=== PATIENT | female | born 1965 | race Caucasian/White ===

== ENCOUNTER 2017-09-21 13:45 | Outpatient (CLI) | payer BC | END 2017-09-21 14:00 | disposition home or self-care (01) | LOC: RT.N 13:45 | PROVIDERS: ATTEND Nurse Practitioner Gerontology | DX: R07.89 Other chest pain (principal) | CPT/HCPCS: 93005 ==

== ENCOUNTER 2017-10-27 11:47 | Outpatient (CLI) | payer BC ==
--- NOTE | 2017-10-28 14:26 | Mammography Report ---
DIGITAL SCREENING MAMMOGRAM: 10/27/2017 CLINICAL INDICATION: A 52-year-old with history of late childbearing for screening. COMPARISON: 06/2011, 05/2008. TECHNIQUE: Routine CC and MLO projections were obtained of the breasts. FINDINGS: The breasts demonstrate heterogeneously dense fibroglandular parenchyma bilaterally. Coarse and punctate, typically benign calcifications are present. No suspicious masses, clustered microcalcifications, or regions of architectural distortion are identified. IMPRESSION: BENIGN FINDINGS. RECOMMENDATION: Routine annual screening unless otherwise clinically indicated. BIRADS CATEGORY 2 - benign findings. STANDARD QUALIFYING STATEMENTS: 1. This examination was reviewed with the aid of Computer-Aided Detection (CAD). 2. A negative or benign imaging report should not delay biopsy if clinically suspicious findings are present. Consider surgical consultation if warranted. More than 5% of cancers are not identified by imaging. 3. Dense breasts may obscure an underlying neoplasm. TD: 10/28/2017 14:25
== END 2017-10-27 11:48 | disposition home or self-care (01) ==
LOC: DI.N 11:47
PROVIDERS: ATTEND Nurse Practitioner Gerontology
DX: Z12.39 Encounter for other screening for malignant neoplasm of breast (principal)
CPT/HCPCS: 77067

== ENCOUNTER 2019-04-28 08:00 | Outpatient (CLI) | payer BC | END 2019-04-28 23:59 | disposition home or self-care (01) | LOC: LAB.N 08:00 | PROVIDERS: ATTEND Nurse Practitioner Gerontology | DX: E03.9 Hypothyroidism, unspecified (principal) | CPT/HCPCS: 36415; 84443 ==

== ENCOUNTER 2019-05-17 14:00 | Outpatient (CLI) | payer BC | END 2019-05-17 23:59 | disposition home or self-care (01) | LOC: LAB.R 14:00 | PROVIDERS: ATTEND Family Medicine | DX: R30.0 Dysuria (principal) | CPT/HCPCS: 87077; 87086 ==

== ENCOUNTER 2020-09-11 15:04 | Outpatient (CLI) | payer BC, OTHER ==
--- NOTE | 2020-09-12 11:25 | Mammography Report ---
BILATERAL DIGITAL SCREENING MAMMOGRAM 3D/2D: 09/11/2020 CLINICAL: Routine screening. Comparison is made to exams dated: 10/27/2017 mammogram and 07/07/2011 mammogram - [facility]. There are scattered fibroglandular elements in both breasts. There is a new 0.5 cm focal asymmetry in the right breast at 3 o'clock posterior depth. No other significant masses, calcifications, or other findings are seen in either breast. IMPRESSION: INCOMPLETE: NEEDS ADDITIONAL IMAGING EVALUATION The new 0.5 cm focal asymmetry in the right breast is indeterminate. Additional views with possible ultrasound are recommended. This exam was interpreted at Station ID: [id number]. NOTE: For mammograms, a report in lay terms will be sent to the patient. Approximately 15% of breast malignancies will not be visualized mammographically. In the management of a palpable breast mass, a negative mammogram must not discourage biopsy of a clinically suspicious lesion. Electronically Signed By: Zia Rizvi M.D. aty/:09/11/2020 17:15:45 ACR BI-RADS Category 0: Incomplete 3340F PARENCHYMAL PATTERN: (A) - The breast(s) demonstrate(s) scattered fibroglandular densities. BI-RADS CATEGORY: (0) - 0 Mammo and US [id number] Immediate follow-up LATERALITY: (R)
== END 2020-09-11 15:05 | disposition home or self-care (01) ==
LOC: DI.N 15:04
PROVIDERS: ATTEND Naturopath
DX: Z12.31 Encounter for screening mammogram for malignant neoplasm of breast (principal); R92.8 Other abnormal and inconclusive findings on diagnostic imaging of breast

== ENCOUNTER 2020-10-02 07:11 | Day surgery (SDC) | payer OTHER ==
[2020-10-02] MEDS ORDERED: LACTATED RINGERS 1,000 ML IV ONE ×2 (07:12→09:20)
[2020-10-02] MEDS ORDERED: fentaNYL 250 MCG/5 ML VIAL ONE (08:50)
[2020-10-02] MEDS ORDERED: MIDAZOLAM 2 MG/2 ML VIAL ONE ×4 (08:50→09:41)
[2020-10-02 09:46] VITALS: BP 105/90
== END 2020-10-02 07:12 | disposition home or self-care (01) ==
LOC: SDS 07:11
PROVIDERS: ATTEND Surgery
DX: Z12.11 Encounter for screening for malignant neoplasm of colon (principal); E66.9 Obesity, unspecified; E03.9 Hypothyroidism, unspecified; Z79.899 Other long term (current) drug therapy; Z68.37 Body mass index [BMI] 37.0-37.9, adult
CPT/HCPCS: 45378; J3010; J7120

== ENCOUNTER 2020-10-04 11:04 | Outpatient (CLI) | payer OTHER ==
--- NOTE | 2020-10-07 12:54 | Ultrasound Report ---
LIMITED ULTRASOUND OF RIGHT BREAST: 10/04/2020 CLINICAL: Patient returns for additional imaging over a suspected mass in the right breast. Comparison is made to exams dated: 10/04/2020 mammogram, 09/11/2020 mammogram, and 10/27/2017 mammogram - [facility]. Color flow and real-time ultrasound of the right breast 3 o'clock region were performed. Clifford scale images of the real-time examination were reviewed. There is a 0.4 cm x 0.3 cm x 0.3 cm oval cyst with an irregular internal wall in the right breast at 3 o'clock posterior depth 4 cm from the nipple. This oval cyst is anechoic. This likely correlates with mammography findings. Color flow imaging demonstrates that there is no vascularity present. IMPRESSION: PROBABLY BENIGN The 0.4 cm oval cyst in the right breast is consistent with a complicated cyst and is probably benign . A follow-up mammogram and possible ultrasound in 6 months is recommended to demonstrate stability. Exam findings were conveyed to the patient. This exam was interpreted at Station ID: [id number]. Electronically Signed By: Ishan Barnes M.D. slc/:10/04/2020 13:02:10 Ultrasound BI-RADS: 3 Probably benign BI-RADS CATEGORY: (3) - 3 Mammo and US [id number] 6 month follow-up LATERALITY: (B)
--- NOTE | 2020-10-07 12:54 | Mammography Report ---
UNILATERAL RIGHT DIGITAL DIAGNOSTIC MAMMOGRAM 3D/2D: 10/04/2020 CLINICAL: Patient returns today to evaluate a focal asymmetry in the right breast. Comparison is made to exams dated: 09/11/2020 mammogram, 10/27/2017 mammogram - [facility]. There are scattered fibroglandular elements in right breast. There is a 0.5 cm focal asymmetry in the right breast at 3 o'clock posterior depth. No other significant masses or calcifications are seen in the breast. IMPRESSION: INCOMPLETE: NEEDS ADDITIONAL IMAGING EVALUATION The 0.5 cm focal asymmetry in the right breast is indeterminate. A targeted ultrasound is recommended and will immediately follow. This exam was interpreted at Station ID: [id number]. NOTE: For mammograms, a report in lay terms will be sent to the patient. Approximately 15% of breast malignancies will not be visualized mammographically. In the management of a palpable breast mass, a negative mammogram must not discourage biopsy of a clinically suspicious lesion. Electronically Signed By: Ishan Barnes M.D. slc/:10/04/2020 13:03:30 ACR BI-RADS Category 0: Incomplete 3340F PARENCHYMAL PATTERN: (A) - The breast(s) demonstrate(s) scattered fibroglandular densities. BI-RADS CATEGORY: (0) - 0 Ultrasound [id number] Immediate follow-up LATERALITY: (B)
== END 2020-10-04 11:05 | disposition home or self-care (01) ==
LOC: DI 11:04
PROVIDERS: ATTEND Naturopath
DX: N60.01 Solitary cyst of right breast (principal)

== ENCOUNTER 2020-11-12 14:10 | Outpatient (CLI) | payer OTHER ==
--- NOTE | 2020-11-12 14:34 | XRAY Report ---
PROCEDURE: Lumbar Spine 2 View INDICATIONS: LUMBAGO WITH SCIATICA, LEFT SIDE TECHNIQUE: 2 views of the lumbar spine were acquired. COMPARISON: None. FINDINGS: No fracture. Levoscoliosis is present. No definite disc space narrowing. Scattered multilevel endplat e spurring and diffuse facet arthropathy. Soft tissues: Overlying bowel gas pattern is normal. No suspicious soft tissue calcifications. IMPRESSION: Mild spondylitic changes and facet arthropathy. Levocurvature. Reviewed by: Bryan Stanley MD on 11/12/2020 2:33 PM PDT Approved by: Bryan Stanley MD on 11/12/2020 2:33 PM PDT Station ID: [id number]
== END 2020-11-12 14:11 | disposition home or self-care (01) ==
LOC: DI 14:10
PROVIDERS: ATTEND Acupuncturist
DX: M47.816 Spondylosis without myelopathy or radiculopathy, lumbar region (principal)

== ENCOUNTER 2021-07-02 19:51 | Outpatient (CLI) | payer OTHER ==
--- NOTE | 2021-07-03 10:37 | XRAY Report ---
PROCEDURE: Knee 3 View LT INDICATIONS: LEFT KNEE PAIN TECHNIQUE: 3 views of the left knee were acquired. COMPARISON: None. FINDINGS: Bones: No fractures or dislocations. No suspicious bony lesions. Soft tissues: There is a small joint effusion. No suspicious soft tissue calcifications. IMPRESSION: 1. No fracture or dislocation. 2. Small joint effusion. Reviewed by: Cesar Jones MD on 07/03/2021 10:35 AM [facility] Approved by: Cesar Jones MD on 07/03/2021 10:35 AM [facility] Station ID: [id number]
== END 2021-07-02 19:52 | disposition home or self-care (01) ==
LOC: DI 19:51
PROVIDERS: ATTEND Acupuncturist
DX: M25.562 Pain in left knee (principal); M25.462 Effusion, left knee

== ENCOUNTER 2021-07-10 16:46 | Outpatient (CLI) | payer OTHER ==
--- NOTE | 2021-07-11 13:46 | Ultrasound Report ---
PROCEDURE: Duplex Ext Veins Left INDICATIONS: LEFT KNEE PAIN TECHNIQUE: Real-time imaging, as well as color and pulse Doppler interrogation, were performed of the lower extr emity deep veins from the inguinal ligament to the popliteal fossa. COMPARISON: None. FINDINGS: The deep veins are normally compressible, and free of intraluminal thrombus. Color and pu lse Doppler demonstrate normal phasic intraluminal flow. There is normal augmentation response to di stal compression maneuver. No visualized Yin's cyst. IMPRESSION: No deep venous thrombosis. Reviewed by: Coreen Lozano MD on 07/11/2021 1:44 PM PST Approved by: Coreen Lozano MD on 07/11/2021 1:44 PM PST Station ID: [id number]
== END 2021-07-10 16:47 | disposition home or self-care (01) ==
LOC: DI 16:46
PROVIDERS: ATTEND Acupuncturist
DX: M25.562 Pain in left knee (principal)

== ENCOUNTER 2021-11-05 15:54 | Outpatient (CLI) | payer OTHER ==
[2021-11-05 16:55] VITALS: BP 148/96
--- NOTE | 2021-11-05 16:55 | SLEEP CARE CONSULTATION ---
Information from patient questionnaire entered by Bobby Moreira MA. I have reviewed and concur with the information entered by Bobby Moreira MA. This document represents the service I personally performed and the decisions made by , Beth Reis ARNP. History of Present Illness Service Date and Time: 11/05/2021 1554 Reason for Visit: New patient Chief Complaint: reports: Insomnia, Unrefreshed sleep, Excessive daytime sleepiness, Frequent awakenings at night Date of Onset: SEVERAL YEARS Usual bedtime: 8-10 PM Time it takes to fall asleep: 1-3 HOURS Snores at night: No (don't know, never told) Observed to quit breathing while asleep: No Number of times waking at night: 2-3 Reasons for waking at night: reports: Pain, Bathroom, Other (unknown reasons). denies: Choking, Snoring, Gasping for air Toss, Turn, or Twitch while sleeping: Yes Recalls having dreams: No Usually gets out of bed at: [id number] Feels refreshed in the morning: No Morning headache: Yes (sometimes; 3-4 times a month; resolve after shower or not at all; hx migrai) Sleepy or fatigued during the day: Yes Ever fallen asleep while driving: No Takes day naps: Yes (sometimes; 1 x a month) Dreams during day naps: No Prior sleep studies: No Additional HPI information: I had the pleasure of seeing LEIDA LEAL today regarding the possibility of her having a sleep disorder. Her current complaints are excessive daytime sleepiness, frequent night awakenings, insomnia and unrefreshed sleep. She saw a medical assistant supervisor who was working with her for her anxiety. She was seeking possible medication for her anxiety and was given some diazepam and methylphenidate extended release. She sleeps alone and no one has told her she snores. She used to have bruxism a long time ago. She has never woke herself up gasping, choking or snoring. She states she lays down and cannot fall asleep for 1-3 hours. She has ruminating thoughts that keep her from falling asleep and will keep her from falling back to sleep if she wakes up during the night. The new medication for her anxiety seems to be helping some with calming her mind. She usually does not feel rested in the mornings. It takes her a while to get up in the morning. - Parasomnia Symptoms Ever been unable to move upon waking from sleep: No Walks in sleep: Yes (used to; don't think so now) Talks in sleep: No (unknown) Ever acted out dreams in sleep: No (unknown) Ever felt weak in the knees when startled or emotional: Yes (has not fallen to ground) Bothered by creepy, crawly, restless sensations in legs: Yes (sometimes; notice it throughout the day) Problems with memory or concentration: Yes (both) Subjective Initial [place] Sleepiness Scale score: 11 (10/2021) Past Medical History Past Medical History: reports: Hypothyroidism, Anxiety, Depression, Other (THYROID, INFLAMMATION OF THE KNEE) Social History The patient's occupation is a [employer]. Patient is Single and lives in . Have you smoked in the past 12 months: No Alcohol use: Yes Alcohol amount and frequency: 1-3 X YEARLY Caffeine use: Yes Caffeine amount and frequency: 1-3 X DAILY Family History Family history of sleep disordered breathing: Yes Family Hx Sleep Apnea: Mother: Sleep apnea - Treated, Sibling: Sleep apnea - Treated Allergies and Home Medications Known drug allergies: No Drug allergies reviewed: Yes (NKDA) Home medication list reviewed: Yes Allergy and home medication list: Allergies No Known Drug Allergies Allergy (Verified 10/02/20 07:35) Medications: diazepam Levothyroxine Methylphenidate Vitamin C, D, B12 Turmeric Magnesium Review of Systems Weight gain over past 5 years: 20+ Cardiovascular: reports: leg or foot swelling Urinary: reports: frequency Neurological: reports: headaches Psychiatric: reports: Attention Deficit Hyperactivity, anxiety, depression Ear/Nose/Throat: reports: nasal congestion, sinus problems, nose bleeds, wisdom teeth removed. denies: tonsillectomy Endocrine: reports: thyroid disease, sluggishness Immunologic: reports: sneezing, allergies to food or environment (seasonal allergies) Physical Exam Vital signs obtained and entered by: SHAYNA BELLAMY Blood Pressure: 148/96 (LEFT, PULSE 101, RESP 16, ) Cuff size: wrist Heart Rate: 105 O2 Saturation: 98 (PAPER MASK) Height: 5 ft 6 in Weight: 230 lb Body Mass Index: 37.1 BMI Classification: Obese Neck circumference: 14 (INCHES) Mouth and throat: narrow oropharynx Soft palate: long Hard palate: normal Uvula: normal Uvula visualization: 50% Mallampati Class II Tongue: enlarged in size with teeth cali on lateral edges Tonsils: 1+ Neck: normal w/o lymphadenopathy or thyromegaly Heart: regular rate and rhythm Lungs: clear bilaterally Impression and Plan 1. Suspected Obstructive Sleep Apnea-Hypopnea Syndrome, as suggested by a history of morning headache, frequent awakening during the night, unrefreshed s leep, cognitive impairment, and excessive daytime sleepiness. Narrow oropharynx and obesity are common predisposing factors for obstructive sleep apnea-hypopnea syndrome. I recommend proceeding to polysomnography to confirm the diagnosis and to assess severity. If the patient has significant sleep disordered breathing, a manual CPAP titration study will also be performed to find the optimal treatment pressure. I informed the patient of what the sleep studies involve and after some discussion, obtained agreement to proceed. The pathophysiology of obstructive sleep apnea-hypopnea syndrome was discussed with the patient and health risks of cardiovascular and cerebrovascular disease if not treated. Risks of drowsy driving discussed in detail and patient advised to avoid long distance driving and to brisket puller at the first sign of drowsiness. Patient agreed to plan. * Schedule polysomnography +- manual CPAP titration study and return in 1-2 weeks after the study to discuss results. * Avoid long distance driving or driving when feeling sleepy. * Avoid alcohol, sedative and muscle relaxant around bedtime. * Attempt to lose weight. * Review instructions provided by trained office staff on how to prepare for the sleep study. * Return for follow-up after sleep study completed. Counseling Topics: Weight loss health impact Visit Type: In Office Time Spent with Patient (minutes): 30 Provider Statement: I spent 100% of the Face to Face Visit with the patient with greater than 50% spent counseling the patient and coordination of care.
== END 2021-11-05 15:55 | disposition home or self-care (01) ==
LOC: SC 15:54
PROVIDERS: ATTEND Nurse Practitioner Family
DX: G47.10 Hypersomnia, unspecified (principal); R53.83 Other fatigue; G47.8 Other sleep disorders; G47.00 Insomnia, unspecified; R51.9 Headache, unspecified; F32.A Depression, unspecified; E66.9 Obesity, unspecified; Z68.37 Body mass index [BMI] 37.0-37.9, adult
CPT/HCPCS: 99203; 99212

== ENCOUNTER 2021-11-11 08:31 | Outpatient (CLI) | payer OTHER | END 2021-11-11 08:32 | disposition home or self-care (01) | LOC: SC 08:31 | PROVIDERS: ATTEND Nurse Practitioner Family | DX: G47.33 Obstructive sleep apnea (adult) (pediatric) (principal); R09.02 Hypoxemia | CPT/HCPCS: 95806 ==

== ENCOUNTER 2021-12-05 15:24 | Outpatient (CLI) | payer OTHER ==
--- NOTE | 2021-12-05 15:55 | SLEEP CARE CONSULTATION ---
Information from patient questionnaire entered by Bobby Moreira MA. I have reviewed and concur with the information entered by Bobby Moreira MA. This document represents the service I personally performed and the decisions made by , Beth Reis ARNP. History of Present Illness Service Date and Time: 12/05/2021 1524 Initial [place] Sleepiness Scale score: 11 (10/2021) Current [place] Sleepiness Scale score: 7 (11/2021) Additional HPI information: LEIDA LEAL returns for follow up and results of the recently performed home sleep study. I explained the pathophysiology behind obstructive sleep apnea. We then spent quite a bit of time discussing different treatment options. For mild obstructive sleep apnea, surgery and oral appliance are alternatives to nasal CPAP therapy but in moderate or severe cases, nasal CPAP is the most effective and reliable treatment. Because apnea is primarily in supine position, then positional management therapy could be effective. Methods discussed such as positioning with pillows to prevent supine sleep. I reviewed the impact of weight changes on sleep apnea and strongly recommended losing weight. [facility] patient education PAP tips and Non Pap treatment pamphlets reviewed and given to patient. Patient was cautioned about risks of drowsy driving until sleepiness symptoms resolve. Sleep Study - Results Type of Sleep Study: Home sleep study (F/U HOME STUDY, 11/11/21 [facility],) Prior sleep studies: No Polysomnography/Home Sleep Study results: Physician Impression: The quality of the study is good. The length of the study is adequate (> 240 minutes). Please also see the tabulated and graphic data. 1. Obstructive Sleep Apnea-Hypopnea (ICD-10 G47.33), moderate, with an AHI of 17.0/hr and luis SaO2 of 77%. During the study, the patient had 87 apneas (85 obstructive, 1 central, 1 mixed) and 66 hypopneas. The longest episode lasted 104.0 seconds. The respiratory events occurred more frequently during supine sleep (supine AHI was 19.4 and non-supine, 15.08). 2. Hypoxemia (ICD-10 R09.02), moderate, with the lowest oxygen saturation of 77 % and 11.7 minutes with SaO2 under 90%. Baseline oxygen saturation was normal (Average oxygen saturation was 93%). Allergies and Home Medications Known drug allergies: No Drug allergies reviewed: Yes Home medication list reviewed: Yes (no changes) Allergy and home medication list: Allergies No Known Drug Allergies Allergy (Verified 10/02/20 07:35) Review of Systems Review of systems same as previous: Yes (no changes) Physical Exam Vital signs obtained and entered by: SHAYNA BELLAMY Blood Pressure: 135/85 (LEFT, PULSE 92, RESP 18) Heart Rate: 90 O2 Saturation: 98 (PAPER MASK) Height: 5 ft 6 in Weight: 225 lb Body Mass Index: 36.3 BMI Classification: Obese Impression and Plan 1. Obstructive Sleep Apnea-Hypopnea Syndrome, moderate, with lowest oxygen saturation of 77%. Obviously this is the cause of the patients symptoms of unrefreshed sleep, and excessive daytime sleepiness. Positive pressure therapy could benefit anxiety and depression. The patient chose an oral appliance to treat their apnea. A 3 month follow up will be made to see if appliance has reduced symptoms. If so, another polysomnography will be ordered with use of the oral appliance to check efficacy in reducing apnea. Until patient is able to use the oral appliance, positional therapy is advised to avoid supine sleep with pillow positioning because apnea is more severe supine. 2. Hypoxemia, moderate, with the lowest oxygen saturation of 77 % and 11.7 minutes with SaO2 under 90%. Her baseline oxygen saturation was normal with an average oxygen saturation of 93%. * Oral appliance * Attempt to lose weight. * Avoid alcohol consumption near bedtime. * Avoid supine sleep. * Return one month after oral appliance obtained. I will assess response to therapy at that time. Counseling Topics: Sleeping position, Weight loss health impact Visit Type: In Office Time Spent with Patient (minutes): 25 Provider Statement: I spent 100% of the Face to Face Visit with the patient with greater than 50% spent counseling the patient and coordination of care.
[2021-12-05 15:56] VITALS: BP 135/85
== END 2021-12-05 15:25 | disposition home or self-care (01) ==
LOC: SC 15:24
PROVIDERS: ATTEND Nurse Practitioner Family
DX: G47.33 Obstructive sleep apnea (adult) (pediatric) (principal); R09.02 Hypoxemia; E66.9 Obesity, unspecified; Z68.36 Body mass index [BMI] 36.0-36.9, adult
CPT/HCPCS: 99212; 99213

== ENCOUNTER 2023-12-08 08:51 | Outpatient (CLI) | payer OTHER ==
--- NOTE | 2023-12-08 16:12 | XRAY Report ---
PROCEDURE: Shoulder 2+V LT INDICATIONS: STRAIN OF UNSPECIFIED MUSCLE, FASCIA AND TENDON TECHNIQUE: 3 views of the shoulder were acquired. COMPARISON: None. FINDINGS: Bones: Prominent calcification is noted adjacent to the lateral humeral head. Moderate acromioclavic ular degenerative narrowing is present. Soft tissues: No suspicious soft tissue calcifications. The visualized lungs are within normal limi ts. IMPRESSION: Prominent calcification adjacent to the humeral head. While this could represent calcific tendinitis, it is prominent in size and avulsion injury of indeterminate age cannot be excluded. Degenerative acromioclavicular narrowing. Reviewed by: Coreen Lozano MD on 12/08/2023 4:11 PM PDT Approved by: Coreen Lozano MD on 12/08/2023 4:11 PM PDT Station ID: [id number]
== END 2023-12-08 08:52 | disposition home or self-care (01) ==
LOC: DI.N 08:51
PROVIDERS: ATTEND Family Medicine
DX: M19.012 Primary osteoarthritis, left shoulder (principal); M25.812 Other specified joint disorders, left shoulder